=== PATIENT | female | born 1995 | race Caucasian/White ===

== ENCOUNTER 2017-04-27 10:29 | Emergency (ER) | payer OTHER ==
[2017-04-27] MEDS ORDERED: NO HOME MEDICATION XX (10:44)
[2017-04-27] MEDS ORDERED: AMOXICILLIN500 M2 PO (12:10)
[2017-04-27] MEDS ORDERED: NORCO 5-325 TA1 EACH PO (12:10)
== END 2017-04-27 12:35 ==
LOC: EDMED 10:29
DX: J03.90 Acute tonsillitis, unspecified (principal)